=== PATIENT | female | born 1985 | race Caucasian/White ===

== ENCOUNTER 2025-01-19 20:02 | Emergency (ER) | payer OTHER ==
[2025-01-19] MEDS ORDERED: LORazepam 2 MG/ML VIAL ONE (20:44)
[2025-01-19] MEDS ORDERED: NA CHLORIDE 0.9% 1,000 ML ONE (20:45)
[2025-01-19 21:05] LABS: Sqamous Epithelial <5 /HPF (None Seen); Urine Culture Reflex Order NOT NEEDED; Urine Microscopic Reflex YN ORDER UMIC
[2025-01-19 21:07] LABS: Absolute Lymphocytes (CBC) 1.9 K/uL (0.7-4.9); Hematocrit 42.4 % (36.0-45.0); Hemoglobin 14.4 g/dL (12.0-15.0); MCH 30.9 pg (27.0-35.0); MCHC 34.1 g/dL (32.0-36.0); MCV 90.8 fL (80-100); MPV 7.8 fL (7.6-11.3); Nucleated RBC Absolute Count 0.0 (0-0); Nucleated Red Blood Cells % 0.0 % (0-0); RBC Red Blood Cell Count 4.67 M/uL (3.86-4.86); White Blood Count 10.70 thou/uL (4.3-10.9)
[2025-01-19 21:26] LABS: Anion Gap 11.5 mEq/L (5.0-15.0); BUN Blood Urea Nitrogen 15.0 mg/dL (7-18); Glucose Level 133.0 mg/dL (74-106); Potassium 3.5 mEq/L (3.5-5.1); Troponin High Sensitivity 3.2 pg/mL (<58.9)
--- NOTE | 2025-01-19 21:41 | RAD REPORT ---
EXAM: Chest Single View HISTORY: 39 years Female CHEST PAIN COMPARISON: 01/22/2019 FINDINGS: LUNGS/PLEURA: The lungs are clear. No pleural effusions or pneumothorax. No pulmonary edema. CARDIAC/MEDIASTINUM: The cardiac silhouette is within normal limits. UPPER ABDOMEN: No significant abnormality. BONES: No acute abnormality. LINES/TUBES/OTHER: N/A IMPRESSION: No evidence of acute cardiopulmonary disease.
--- NOTE | 2025-01-19 22:22 | EDPHYS ---
Physician Documentation [facility] Name: Irais Garcia Age: 39 yrs Sex: Female : 1985 Arrival Date: 01/19/2025 Time: 20:02 Bed 2 Private MD: ED Physician Italo Garcia HPI: 01/20 08:29 This 39 yrs old Female presents to ER via EMS with complaints of anxiety. 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 - Infectious Disease History:: Denies. - Social history:: Smoking status: Reported history of juuling and/or vaping. Patient/guardian denies using alcohol, street drugs. Vital Signs: 20:22 BP 159 / 97; Pulse 117; Resp 19 S; Temp 98.9(O); Pulse Ox 100% on R/A; Weight 77.56 kg lg3 (R); Height 5 ft. 3 in. (R); Pain 0/10; 22:11 BP 141 / 81; Pulse 96; Resp 17 S; Pulse Ox 98% on R/A; lg3 20:22 Body Mass Index 30.29 (77.56 kg, 160.02 cm) lg3 20:22 Pain Scale: Adult lg3 MDM: 20:36 Medical Screening Exam initiated tt7 01/20 08:29 ED course: I have reviewed and independently interpreted the patient's EKG performed on tt7 01/19/2025 at 1934. On my interpretation, sinus tachycardia, ventricular rate 122 bpm, normal axis, normal QRS interval, normal ST segments, no STEMI. 01/19 20:32 Order name: Basic Metabolic Panel; Complete Time: 22:07 3 01/19 20:32 Order name: CBC with Diff; Complete Time: 22:07 [facility] 01/19 20:32 Order name: Troponin HS; Complete Time: 22:07 3 01/19 20:32 Order name: UA Rfx Ming Cult if indicated; Complete Time: 22:07 3 01/19 20:32 Order name: Test, Urine; Complete Time: 22:07 3 01/19 20:32 Order name: XRAY Chest (1 view); Complete Time: 22:07 [facility] 01/19 20:32 Order name: Cardiac monitoring; Complete Time: 20:49 3 01/19 20:32 Order name: EKG - Nurse/Tech; Complete Time: 20:49 3 01/19 20:32 Order name: IV Saline Lock; Complete Time: 20:49 3 01/19 20:32 Order name: Labs collected and sent; Complete Time: 20:49 3 01/19 20:32 Order name: O2 Per Protocol; Complete Time: 20:49 3 01/19 20:32 Order name: O2 Sat Monitoring; Complete Time: 20:49 lg3 Administered Medications: 01/19 20:49 Drug: NS 0.9% IV 1000 ml IV at 1 bolus Per protocol; to be given as a bolus over 60 lg3 minutes Route: IV; Rate: 1 bolus; Site: right antecubital; 22:11 Follow up: Response: No adverse reaction; IV Status: Completed infusion; IV Intake: lg3 1000ml 20:49 Drug: Ativan IVP 1 mg IVP once Route: IVP; Site: right antecubital; lg3 22:11 Follow up: Response: No adverse reaction; Marked relief of symptoms; RASS: Alert and lg3 Calm (0) Disposition Summary: 01/19/25 22:21 Discharge Ordered Notes: Location: Home tt7 Problem: new tt7 Symptoms: are resolved tt7 Condition: Stable tt7 Diagnosis - Panic disorder [episodic paroxysmal anxiety] without agoraphobia tt7 - LIGHTHEADEDNESS tt7 Followup: tt7 - With: Emergency Department - When: As needed - Reason: Followup: tt7 - With: Private Physician - When: 2 - 3 days - Reason: Recheck today's complaints, Re-evaluation by your physician Discharge Instructions: - Discharge Summary Sheet tt7 - Panic Attack, [id number] tt7 - Managing Anxiety, Adult tt7 Forms: - Medication Reconciliation Form tt7 - Antibiotic Education tt7 - Prescription Opioid Use tt7 - Patient Portal Instructions tt7 - Leadership Thank You Letter tt7 Signatures: Dispatcher [employer] Jennifer Ballard RN RN lg3 Italo Garcia DO DO tt7
--- NOTE | 2025-01-19 22:22 | ER ---
Nurse's Notes [facility] [place], [place] Name: Irais Garcia Age: 39 yrs Sex: Female : 1985 Arrival Date: 01/19/2025 Time: 20:02 Bed 2 Private MD: Diagnosis: Panic disorder [episodic paroxysmal anxiety] without agoraphobia;LIGHTHEADEDNESS Presentation: 01/19 20:22 Chief complaint: Patient states: episodes of lightheadedness, hot flashes, dizziness lg3 and weakness while using the restroom. reports diarrhea. Coronavirus screen: Client denies travel out of the [place] in the last 14 days. At this time, the client does not indicate any symptoms associated with coronavirus-19. Ebola Screen: No symptoms or risks identified at this time. Initial Sepsis Screen: Does the patient meet any 2 criteria? No. Patient's initial sepsis screen is negative. Does the patient have a suspected source of infection? No. Patient's initial sepsis screen is negative. Risk Assessment: Do you want to hurt yourself or someone else? Patient reports no desire to harm self or others. Onset of symptoms was January 19, 2025. 20:22 Method Of Arrival: EMS: [facility] lg3 20:22 Acuity: LUIS 3 lg3 Triage Assessment: 20:26 General: Appears in no apparent distress. comfortable, Behavior is cooperative, lg3 anxious, fussy. Pain: Denies pain. EENT: No deficits noted. No signs and/or symptoms were reported regarding the EENT system. Neuro: Lopez Agitation-Sedation Scale (RASS): +1 Restless Level of Consciousness is awake, alert, obeys commands, Oriented to person, place, time, situation. Cardiovascular: Denies chest pain, shortness of breath, Capillary refill < 3 seconds Clubbing of nail beds is absent JVD is absent Patient's skin is warm and dry. Rhythm is sinus tachycardia. Respiratory: No deficits noted. Airway is patent Respiratory effort is even, unlabored, Respiratory pattern is regular, symmetrical. GI: No deficits noted. Abdomen is round non-distended, Reports diarrhea. : No signs and/or symptoms were reported regarding the genitourinary system. Derm: No deficits noted. Skin is intact, is healthy with good turgor, Skin is dry, Skin is normal, Skin temperature is warm Reports hot flashes. Musculoskeletal: No deficits noted. Circulation, motion, and sensation intact. Range of motion: intact in all extremities. 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 - Infectious Disease History:: Denies. - Social history:: Smoking status: Reported history of juuling and/or vaping. Patient/guardian denies using alcohol, street drugs. Screenin:30 [facility] ED Fall Risk Assessment (Adult) History of falling in the last 3 months, lg3 including since admission No falls in past 3 months (0 pts) Confusion or Disorientation No (0 pts) Intoxicated or Sedated No (0 pts) Impaired Gait No (0 pts) Mobility Assist Device Used No (0 pt) Altered Elimination No (0 pt) Score/Fall Risk Level 0 - 2 = Low Risk Oriented to surroundings, Maintained a safe environment, Educated pt \T\ family on fall prevention, incl call for assistance when getting out of bed, Assessed \T\ reinforced patient's understanding of fall precautions. Abuse screen: Denies threats or abuse. Denies injuries from another. Nutritional screening: No deficits noted. Tuberculosis screening: No symptoms or risk factors identified. Assessment: 20:30 General: see triage assessment. lg3 22:10 Reassessment: Patient appears in no apparent distress at this time. No changes from lg3 previously documented assessment. Patient and/or family updated on plan of care and expected duration. Pain level reassessed. Patient is alert, oriented x 3, equal unlabored respirations, skin warm/dry/pink. Patient states feeling better. Patient states symptoms have improved. Vital Signs: 20:22 BP 159 / 97; Pulse 117; Resp 19 S; Temp 98.9(O); Pulse Ox 100% on R/A; Weight 77.56 kg lg3 (R); Height 5 ft. 3 in. (R); Pain 0/10; 22:11 BP 141 / 81; Pulse 96; Resp 17 S; Pulse Ox 98% on R/A; lg3 20:22 Body Mass Index 30.29 (77.56 kg, 160.02 cm) lg3 20:22 Pain Scale: Adult lg3 ED Course: 20:08 Patient arrived in ED. kmf 20:21 Jenniefr Lynn, RN is Primary Nurse. lg3 20:26 Triage completed. lg3 20:26 Arm band placed on right wrist. lg3 20:30 Patient has correct armband on for positive identification. Placed in gown. Bed in low lg3 position. Call light in reach. Side rails up X 1. Client placed on continuous cardiac and pulse oximetry monitoring. NIBP monitoring applied. ekg monitor on. Door closed. Noise minimized. Warm blanket given. Pillow given. Family accompanied patient. 20:36 Italo Garcia DO is Attending Physician. tt7 20:48 Initial lab(s) drawn, by me, sent to lab. Urine collected: clean catch specimen, clear, lg3 EKG done, by ED staff, reviewed by Italo Garcia DO. Inserted saline lock: 22 gauge in right antecubital area, using aseptic technique. Blood collected. Flushed with 10 mL NS. 20:50 Missed attempt(s): 20 gauge in right forearm. Bleeding controlled, band aid applied, sa1 catheter tip intact. 21:32 XRAY Chest (1 view) In Process Unspecified. EDMS 22:35 No provider procedures requiring assistance completed. IV discontinued, intact, lg3 bleeding controlled, No redness/swelling at site. Pressure dressing applied. Administered Medications: 20:49 Drug: NS 0.9% IV 1000 ml IV at 1 bolus Per protocol; to be given as a bolus over 60 lg3 minutes Route: IV; Rate: 1 bolus; Site: right antecubital; 22:11 Follow up: Response: No adverse reaction; IV Status: Completed infusion; IV Intake: lg3 1000ml 20:49 Drug: Ativan IVP 1 mg IVP once Route: IVP; Site: right antecubital; lg3 22:11 Follow up: Response: No adverse reaction; Marked relief of symptoms; RASS: Alert and lg3 Calm (0) Medication: 20:30 VIS not applicable for this client. lg3 Intake: 22:11 IV: 1000ml; Total: 1000ml. lg3 Outcome: 22:21 Discharge ordered by . tt7 22:35 Discharged to home ambulatory, with significant other, lg3 22:35 Condition: stable 22:35 Discharge instructions given to patient, Instructed on discharge instructions, follow up and referral plans. Demonstrated understanding of instructions, follow-up care, 22:41 Patient left the ED. lg3 Signatures: Dispatcher [employer] Jennifer Ballard, RN RN lg3 Eliana Gallegos Sultan lolis Tolliver Italo Garcia, DO tt7
[2025-01-19] MEDS ORDERED: ACETAMINOPHEN 500 MG TAB ONE (22:36)
[2025-01-19 23:03] VITALS: TEMP 98.9
[2025-01-19 23:05] VITALS: BP 141/81; O2SAT 98
== END 2025-01-19 22:41 | disposition home or self-care (01) ==
LOC: ER 20:02
DX: F41.0 Panic disorder [episodic paroxysmal anxiety] (principal); F41.9 Anxiety disorder, unspecified; I10 Essential (primary) hypertension; E11.9 Type 2 diabetes mellitus without complications; F17.290 Nicotine dependence, other tobacco product, uncomplicated; Z88.5 Allergy status to narcotic agent; Z88.8 Allergy status to other drugs, medicaments and biological substances
CPT/HCPCS: 96361; 85025; 81001; 80048; 36415; 81025; 84484; 71045; 96374; 99285; J7030